=== PATIENT | male | born 1940 | race Caucasian/White ===

== ENCOUNTER → 2019-04-25 | Outpatient (CLI) | payer MEDICARE, BC ==
[2019-04-25 14:05] LABS: BASO # 0.1 10*3/uL (0.0-0.1); BASO % 0.8 % (0.0-1.0); EOS # 0.1 10*3/uL (0.0-0.4); EOS % 1.1 % (1.0-4.0); HEMATOCRIT 47.1 % (42.0-52.0); HEMOGLOBIN 15.3 g/dl (14.0-18.0); LYMPH # 1.7 10*3/uL (1.3-4.4); LYMPH % 23.3 % (27.0-41.0); MEAN CELL VOLUME 91.6 fl (80.0-94.0); MEAN CORPUSCULAR HGB 29.8 pg (27.0-31.0); MEAN CORPUSCULAR HGB CONC 32.5 g/dl (33.0-37.0); MEAN PLATELET VOLUME 11.7 fl (9.6-12.3); MONO # 0.6 10*3/uL (0.1-1.0); MONO % 7.9 % (3.0-9.0); NEUT # 4.7 10*3/uL (2.3-7.9); NEUT % 65.6 % (47.0-73.0); PLATELET COUNT AUTOMATED 220 10*3/uL (130-400); RED BLOOD COUNT 5.14 10*6/uL (4.50-5.90); WHITE BLOOD COUNT 7.2 10*3/uL (4.8-10.8)
== END | disposition home or self-care (01) ==
LOC: LAB 13:38
PROVIDERS: Ophthalmology
DX: G45.3 Amaurosis fugax (principal); H47.011 Ischemic optic neuropathy, right eye

== ENCOUNTER 2019-09-01 09:02 | Emergency (ER) | payer MEDICARE, BC ==
[~2019-09-01] VITALS: Ht 170.1 cm; Wt 84.8 kg
[2019-09-01 12:35] LABS: CLARITY SL CLOUDY (CLEAR); COLOR ORANGE (YELLOW); GLUCOSE NEGATIVE (NEGATIVE)
[2019-09-01 12:36] LABS: BILIRUBIN 1+ (NEGATIVE); BLOOD 1+ (NEGATIVE); KETONE NEGATIVE (NEGATIVE); LEUKO ESTERASE NEGATIVE (NEGATIVE); NITRITE NEGATIVE (NEGATIVE); UROBILINOGEN 0.2 E.U./dl (0.2-1.0)
[2019-09-01 12:37] LABS: MUCOUS 2+
[2019-09-01] MEDS ORDERED: MACROBID100 M1 PO (12:44)
== END 2019-09-01 12:57 | disposition home or self-care (01) ==
LOC: ED 09:02
PROVIDERS: Physician Assistant
DX: N43.3 Hydrocele, unspecified (principal); N39.0 Urinary tract infection, site not specified; I86.1 Scrotal varices; Z88.2 Allergy status to sulfonamides; Z88.8 Allergy status to other drugs, medicaments and biological substances

== ENCOUNTER 2019-09-04 12:20 | Inpatient (IN) | payer OTHER ==
[~2019-09-04] VITALS: Ht 170.1 cm; Wt 78.5 kg
[2019-09-04] VITALS: BP 122/64
[~2019-09-04 12:20] MED LIST: MACROBID100 M1 PO
[2019-09-04 12:25] VITALS: BP 93/59
[2019-09-04 13:17] LABS: HEMATOCRIT 41.5 % (42.0-52.0); HEMOGLOBIN 13.7 g/dl (14.0-18.0); MEAN CELL VOLUME 89.8 fl (80.0-94.0); MEAN CORPUSCULAR HGB 29.7 pg (27.0-31.0); MEAN PLATELET VOLUME 11.7 fl (9.6-12.3); PLATELET COUNT AUTOMATED 374 10*3/uL (130-400); RED BLOOD COUNT 4.62 10*6/uL (4.50-5.90); RED CELL DISTRI WIDTH 13.6 % (0-14.5); WHITE BLOOD COUNT 29.5 10*3/uL (4.8-10.8)
[2019-09-04 13:33] LABS: ALBUMIN 1.8 gm/dl (3.1-4.5); CREATININE 1.84 mg/dL (0.70-1.30); TOTAL PROTEIN 7.2 gm/dL (6.4-8.2)
[2019-09-04 13:36] LABS: POTASSIUM 4.1 mmol/L (3.5-5.1); ROULEAUX SLIGHT; TOTAL CELLS COUNTED 100 #CELLS
[2019-09-04 13:37] LABS: BURR CELLS FEW; PLATELET SUFFICIENCY NORMAL (NORMAL)
[2019-09-04 13:55] LABS: BILIRUBIN NEGATIVE (NEGATIVE); BLOOD TRACE-INTACT (NEGATIVE); CLARITY CLOUDY (CLEAR); COLOR YELLOW (YELLOW); GLUCOSE NEGATIVE (NEGATIVE); KETONE NEGATIVE (NEGATIVE); LEUKO ESTERASE NEGATIVE (NEGATIVE); NITRITE NEGATIVE (NEGATIVE); SPECIFIC GRAVITY 1.025 (1.005-1.030); UROBILINOGEN 0.2 E.U./dl (0.2-1.0)
[2019-09-04 13:56] LABS: BACTERIA 3+; COARSE GRANULAR CAST 30-40
[2019-09-04 14:15] VITALS: BP 119/71
[2019-09-04 15:17] VITALS: BP 130/86
[2019-09-04 16:17] VITALS: BP 156/77
[2019-09-04] MEDS ORDERED: Synthroid,Levo50 MCG PO (17:04)
[2019-09-04] MEDS ORDERED: ASPIRIN ADULT L81 M1 PO (17:05)
[2019-09-04] MEDS ORDERED: VITAMIN D350 MC2 PO (17:06)
[2019-09-04] MEDS ORDERED: PROTONIX40 MG PO (17:08)
[2019-09-04] MEDS ORDERED: NIFEDIPINE30 MG PO (17:10)
[2019-09-04 20:00] VITALS: BP 125/55
[2019-09-05] VITALS: BP 122/64
[2019-09-05 06:13] LABS: HEMATOCRIT 38.8 % (42.0-52.0); HEMOGLOBIN 12.8 g/dl (14.0-18.0); MEAN PLATELET VOLUME 11.4 fl (9.6-12.3); PLATELET COUNT AUTOMATED 339 10*3/uL (130-400); RED BLOOD COUNT 4.41 10*6/uL (4.50-5.90); RED CELL DISTRI WIDTH 13.7 % (0-14.5); WHITE BLOOD COUNT 29.3 10*3/uL (4.8-10.8)
[2019-09-05 06:45] LABS: ALBUMIN 1.6 gm/dl (3.1-4.5); CREATININE 1.78 mg/dL (0.70-1.30); PHOSPHOROUS 3.7 mg/dL (2.5-4.9)
[2019-09-05 06:51] LABS: FREE T4 0.95 ng/dl (0.76-1.46); THYROID STIM HORMONE (HS) 5.42 uIU/ml (0.358-4.75); TOTAL PROTEIN 6.5 gm/dL (6.4-8.2)
[2019-09-05 07:11] LABS: BASOPHILS 1 % (0-1); PLATELET SUFFICIENCY NORMAL (NORMAL); TOTAL CELLS COUNTED 100 #CELLS; TOXIC GRANULATION SLIGHT
[2019-09-05 07:18] LABS: VITAMIN D, 25-HYDROXY 57.2 ng/mL (30-100)
[2019-09-05 08:00] VITALS: BP 129/64
[2019-09-05 12:00] VITALS: BP 137/67
[2019-09-05 16:00] VITALS: BP 148/63
[2019-09-05 20:00] VITALS: BP 155/80
[2019-09-06] VITALS: BP 150/62
[2019-09-06 06:10] LABS: HEMATOCRIT 35.5 % (42.0-52.0); HEMOGLOBIN 12.1 g/dl (14.0-18.0); MEAN CELL VOLUME 85.7 fl (80.0-94.0); MEAN CORPUSCULAR HGB 29.2 pg (27.0-31.0); MEAN CORPUSCULAR HGB CONC 34.1 g/dl (33.0-37.0); MEAN PLATELET VOLUME 11.3 fl (9.6-12.3); PLATELET COUNT AUTOMATED 322 10*3/uL (130-400); RED BLOOD COUNT 4.14 10*6/uL (4.50-5.90); RED CELL DISTRI WIDTH 13.6 % (0-14.5); WHITE BLOOD COUNT 29.7 10*3/uL (4.8-10.8)
[2019-09-06 06:46] LABS: ALBUMIN 1.4 gm/dl (3.1-4.5); CREATININE 1.45 mg/dL (0.70-1.30); POTASSIUM 3.7 mmol/L (3.5-5.1); TOTAL PROTEIN 5.9 gm/dL (6.4-8.2)
[2019-09-06 07:29] LABS: TOTAL CELLS COUNTED 100 #CELLS
[2019-09-06 07:30] LABS: PLATELET SUFFICIENCY NORMAL (NORMAL); TOXIC GRANULATION SLIGHT
[2019-09-06 08:00] VITALS: BP 137/61
[2019-09-06 12:00] VITALS: BP 136/60
[2019-09-06 16:00] VITALS: BP 154/75
[2019-09-06 20:00] VITALS: BP 129/63
[2019-09-07] VITALS: BP 154/53
[2019-09-07 06:07] LABS: HEMATOCRIT 37.8 % (42.0-52.0); HEMOGLOBIN 12.5 g/dl (14.0-18.0); MEAN CELL VOLUME 87.9 fl (80.0-94.0); MEAN CORPUSCULAR HGB 29.1 pg (27.0-31.0); MEAN CORPUSCULAR HGB CONC 33.1 g/dl (33.0-37.0); MEAN PLATELET VOLUME 11.5 fl (9.6-12.3); PLATELET COUNT AUTOMATED 374 10*3/uL (130-400); RED CELL DISTRI WIDTH 14.1 % (0-14.5); WHITE BLOOD COUNT 27.2 10*3/uL (4.8-10.8)
[2019-09-07 07:38] LABS: ATYPICAL LYMPHS 1 % (0-0); TOTAL CELLS COUNTED 100 #CELLS; TOXIC GRANULATION SLIGHT
[2019-09-07 07:39] LABS: BURR CELLS FEW; PLATELET SUFFICIENCY NORMAL (NORMAL); POLYCHROMASIA SLIGHT
[2019-09-07 08:00] VITALS: BP 156/60
[2019-09-07 12:00] VITALS: BP 136/64
[2019-09-07 17:00] VITALS: BP 147/71
[2019-09-07 20:00] VITALS: BP 136/54
[2019-09-08] VITALS: BP 141/54
[2019-09-08 06:16] LABS: HEMATOCRIT 37.2 % (42.0-52.0); HEMOGLOBIN 12.5 g/dl (14.0-18.0); MEAN CELL VOLUME 86.1 fl (80.0-94.0); MEAN CORPUSCULAR HGB 28.9 pg (27.0-31.0); MEAN CORPUSCULAR HGB CONC 33.6 g/dl (33.0-37.0); MEAN PLATELET VOLUME 11.6 fl (9.6-12.3); PLATELET COUNT AUTOMATED 393 10*3/uL (130-400); RED BLOOD COUNT 4.32 10*6/uL (4.50-5.90); RED CELL DISTRI WIDTH 14.1 % (0-14.5); WHITE BLOOD COUNT 26.2 10*3/uL (4.8-10.8)
[2019-09-08 06:51] LABS: ALBUMIN 1.4 gm/dl (3.1-4.5); CREATININE 1.46 mg/dL (0.70-1.30); POTASSIUM 3.5 mmol/L (3.5-5.1); TOTAL PROTEIN 6.3 gm/dL (6.4-8.2)
[2019-09-08 07:28] LABS: PLATELET SUFFICIENCY NORMAL (NORMAL); POLYCHROMASIA SLIGHT; TOTAL CELLS COUNTED 100 #CELLS
[2019-09-08 07:29] LABS: BURR CELLS FEW; TOXIC GRANULATION SLIGHT
[2019-09-08 08:00] VITALS: BP 143/84
[2019-09-08 12:00] VITALS: BP 135/52
[2019-09-08 16:00] VITALS: BP 151/57
[2019-09-08 20:00] VITALS: BP 130/49
[2019-09-09] VITALS: BP 135/71
[2019-09-09 06:10] LABS: HEMATOCRIT 34.2 % (42.0-52.0); HEMOGLOBIN 11.6 g/dl (14.0-18.0); MEAN CELL VOLUME 86.1 fl (80.0-94.0); MEAN CORPUSCULAR HGB 29.2 pg (27.0-31.0); MEAN CORPUSCULAR HGB CONC 33.9 g/dl (33.0-37.0); MEAN PLATELET VOLUME 11.2 fl (9.6-12.3); PLATELET COUNT AUTOMATED 419 10*3/uL (130-400); RED BLOOD COUNT 3.97 10*6/uL (4.50-5.90); RED CELL DISTRI WIDTH 13.9 % (0-14.5); WHITE BLOOD COUNT 24.6 10*3/uL (4.8-10.8)
[2019-09-09 07:26] LABS: BASOPHILS 1 % (0-1); PLATELET SUFFICIENCY HIGH (NORMAL); TOTAL CELLS COUNTED 100 #CELLS; TOXIC GRANULATION SLIGHT
[2019-09-09 08:00] VITALS: BP 144/72
[2019-09-09] MEDS ORDERED: OMNICEF300 MG PO (09:51)
== END 2019-09-09 12:00 | disposition home or self-care (01) | DRG 871 ==
LOC: ED 12:20 → EDHOLD 15:30 → 4E 15:30
PROVIDERS: Emergency Medicine; Registered Nurse; Student in an Organized Health Care Education/Training Program; ADMIT Internal Medicine
DX: A41.9 Sepsis, unspecified organism (principal); E43 Unspecified severe protein-calorie malnutrition; N17.0 Acute kidney failure with tubular necrosis; N39.0 Urinary tract infection, site not specified; E87.1 Hypo-osmolality and hyponatremia; E87.2 Acidosis; R54 Age-related physical debility; N18.3 Chronic kidney disease, stage 3 (moderate); R26.2 Difficulty in walking, not elsewhere classified; I12.9 Hypertensive chronic kidney disease with stage 1 through stage 4 chronic kidney disease, or unspecified chronic kidney disease; R73.9 Hyperglycemia, unspecified; R74.0 Nonspecific elevation of levels of transaminase and lactic acid dehydrogenase [LDH]; R65.20 Severe sepsis without septic shock; Z20.828 Contact with and (suspected) exposure to other viral communicable diseases; B96.1 Klebsiella pneumoniae [K. pneumoniae] as the cause of diseases classified elsewhere; Z91.14 Patient's other noncompliance with medication regimen; Z88.8 Allergy status to other drugs, medicaments and biological substances; Z91.040 Latex allergy status; Z87.442 Personal history of urinary calculi; Z83.79 Family history of other diseases of the digestive system; Z79.899 Other long term (current) drug therapy; Z91.81 History of falling; Z68.27 Body mass index [BMI] 27.0-27.9, adult

== ENCOUNTER 2019-09-12 16:25 | Emergency (ER) | payer OTHER ==
[~2019-09-12] VITALS: Ht 170.1 cm; Wt 78.0 kg
[~2019-09-12 16:25] MED LIST changes: +ASPIRIN ADULT L81 M1 PO; +NIFEDIPINE30 MG PO; +OMNICEF300 MG PO; +PROTONIX40 MG PO; +Synthroid,Levo50 MCG PO; +VITAMIN D350 MC2 PO
[2019-09-12 17:28] LABS: HEMATOCRIT 32.5 % (42.0-52.0); HEMOGLOBIN 10.8 g/dl (14.0-18.0); MEAN CELL VOLUME 87.6 fl (80.0-94.0); MEAN CORPUSCULAR HGB 29.1 pg (27.0-31.0); MEAN CORPUSCULAR HGB CONC 33.2 g/dl (33.0-37.0); MEAN PLATELET VOLUME 10.5 fl (9.6-12.3); PLATELET COUNT AUTOMATED 525 10*3/uL (130-400); RED BLOOD COUNT 3.71 10*6/uL (4.50-5.90); RED CELL DISTRI WIDTH 14.6 % (0-14.5); WHITE BLOOD COUNT 17.1 10*3/uL (4.8-10.8)
[2019-09-12 17:39] LABS: ACT PARTIAL THROMBO TIME 28.7 SECONDS (20.0-32.1); INTERNATIONAL NORM RATIO 1.2 (2.0-3.5)
[2019-09-12 17:43] LABS: ALBUMIN 1.4 gm/dl (3.1-4.5); ALKALINE PHOSPHATASE 112 U/L (45-117); BUN 51 mg/dl (7-24); CHLORIDE 104 mmol/L (98-107); CREATININE 2.22 mg/dL (0.70-1.30); LIPASE 107 U/L (73-393); POTASSIUM 3.4 mmol/L (3.5-5.1); SGOT/AST 33 IU/L (3-35); SGPT/ALT 38 U/L (12-78); SODIUM 131 mmol/L (136-145); TOTAL PROTEIN 5.9 gm/dL (6.4-8.2)
[2019-09-12 17:44] LABS: TROPONIN I < 0.015 ng/ml (<0.045)
[2019-09-12 18:03] LABS: TOTAL CELLS COUNTED 100 #CELLS
[2019-09-12 18:04] LABS: BURR CELLS FEW; PLATELET SUFFICIENCY HIGH (NORMAL)
[2019-09-12 18:25] LABS: BILIRUBIN NEGATIVE (NEGATIVE); BLOOD TRACE-INTACT (NEGATIVE); CLARITY CLEAR (CLEAR); COLOR YELLOW (YELLOW); GLUCOSE NEGATIVE (NEGATIVE); KETONE NEGATIVE (NEGATIVE); LEUKO ESTERASE NEGATIVE (NEGATIVE); NITRITE NEGATIVE (NEGATIVE); SPECIFIC GRAVITY 1.025 (1.005-1.030); UROBILINOGEN 0.2 E.U./dl (0.2-1.0)
[2019-09-12 18:32] LABS: BACTERIA TRACE; HYALINE CAST 0-2; RBC 0-2 rbc/hpf (0-2); WBC 0-2 wbc/hpf (0-5)
== END 2019-09-12 19:12 | disposition home or self-care (01) ==
LOC: ED 16:25
PROVIDERS: Physician Assistant
DX: N39.0 Urinary tract infection, site not specified (principal); D72.829 Elevated white blood cell count, unspecified; Z88.2 Allergy status to sulfonamides; Z79.2 Long term (current) use of antibiotics; Z79.899 Other long term (current) drug therapy; Z79.82 Long term (current) use of aspirin; Z87.442 Personal history of urinary calculi; Z87.891 Personal history of nicotine dependence

== ENCOUNTER 2019-09-19 16:28 | Emergency (ER) | payer OTHER, MEDICARE, BC ==
[~2019-09-19] VITALS: Ht 167.6 cm; Wt 74.8 kg
[2019-09-19 17:28] LABS: BASO # 0.1 10*3/uL (0.0-0.1); BASO % 0.5 % (0.0-1.0); EOS # 0.4 10*3/uL (0.0-0.4); EOS % 3.2 % (1.0-4.0); HEMATOCRIT 29.9 % (42.0-52.0); LYMPH # 1.6 10*3/uL (1.3-4.4); LYMPH % 12.2 % (27.0-41.0); MEAN CELL VOLUME 88.2 fl (80.0-94.0); MEAN CORPUSCULAR HGB 28.3 pg (27.0-31.0); MEAN CORPUSCULAR HGB CONC 32.1 g/dl (33.0-37.0); MEAN PLATELET VOLUME 9.6 fl (9.6-12.3); MONO # 1.1 10*3/uL (0.1-1.0); MONO % 8.2 % (3.0-9.0); NEUT # 9.8 10*3/uL (2.3-7.9); NEUT % 74.3 % (47.0-73.0); PLATELET COUNT AUTOMATED 441 10*3/uL (130-400); RED BLOOD COUNT 3.39 10*6/uL (4.50-5.90); RED CELL DISTRI WIDTH 14.5 % (0-14.5); WHITE BLOOD COUNT 13.2 10*3/uL (4.8-10.8)
[2019-09-19 17:44] LABS: ALBUMIN 1.5 gm/dl (3.1-4.5); CREATININE 1.65 mg/dL (0.70-1.30); POTASSIUM 4.9 mmol/L (3.5-5.1); TOTAL PROTEIN 6.3 gm/dL (6.4-8.2)
[2019-09-19 18:52] LABS: BILIRUBIN NEGATIVE (NEGATIVE); BLOOD NEGATIVE (NEGATIVE); CLARITY CLEAR (CLEAR); COLOR YELLOW (YELLOW); GLUCOSE NEGATIVE (NEGATIVE); KETONE NEGATIVE (NEGATIVE); LEUKO ESTERASE NEGATIVE (NEGATIVE); NITRITE NEGATIVE (NEGATIVE); SPECIFIC GRAVITY 1.015 (1.005-1.030); UROBILINOGEN 0.2 E.U./dl (0.2-1.0)
[2019-09-19 19:08] LABS: BACTERIA TRACE; MUCOUS 1+
== END 2019-09-19 20:47 | disposition home or self-care (01) ==
LOC: ED 16:28
PROVIDERS: Emergency Medicine
DX: R50.9 Fever, unspecified (principal); D72.829 Elevated white blood cell count, unspecified; I12.9 Hypertensive chronic kidney disease with stage 1 through stage 4 chronic kidney disease, or unspecified chronic kidney disease; N18.3 Chronic kidney disease, stage 3 (moderate); Z88.8 Allergy status to other drugs, medicaments and biological substances; Z88.2 Allergy status to sulfonamides; Z79.899 Other long term (current) drug therapy; Z79.82 Long term (current) use of aspirin

== ENCOUNTER → 2020-04-20 | Outpatient (CLI) | payer MEDICARE, BC | END | disposition home or self-care (01) | LOC: US 09:38 | PROVIDERS: ATTEND Internal Medicine | DX: R10.9 Unspecified abdominal pain (principal) ==

== ENCOUNTER → 2020-04-22 | Outpatient (CLI) | payer OTHER ==
--- NOTE | 2020-04-22 11:11 | NUR ---
INFORMED SIGEND CONSENT OBTAINED FOR LEXISCAN STRESS TEST WITH DR BARAHONA. RESTING EKG WADERING PACEMAKER HR 76 BP 170/70. PULSE OX 98% LUNGS CLEAR. PT COMPLETED ONE MINUTE OF A LEXISCAN PROTOCOL WITH PT RECEIVING LEXISCAN 0.4MG IV OVER [address] CHANGES NOTED. PVC'S AND PAC'S. PT HAD NO SYMPTOMS WITH INJECTION. LAST RECOVERY HR OF 104 BP 180/74. PT IN STABLE CONDITION. AWAITNG NUCLEAR IMAGES.
== END | disposition home or self-care (01) ==
LOC: CARD 00:43
PROVIDERS: ATTEND Nurse Practitioner Family
DX: I20.9 Angina pectoris, unspecified (principal); R06.02 Shortness of breath; R06.00 Dyspnea, unspecified

== ENCOUNTER 2021-05-12 22:29 | Emergency (ER) | payer MEDICARE, BC | END 2021-05-13 00:25 | LOC: ED 22:29 | DX: I46.9 Cardiac arrest, cause unspecified (principal); Z88.1 Allergy status to other antibiotic agents; Z79.899 Other long term (current) drug therapy; Z79.82 Long term (current) use of aspirin ==